=== PATIENT | female | born 1995 | race Two or more races ===

== ENCOUNTER 2019-12-31 09:08 | Inpatient (IN) | payer OTHER ==
[~2019-12-31] VITALS: Ht 177.8 cm; Wt 4.1 kg
[2020-01-09] MEDS ORDERED: PRENATAL PO (15:05)
[2020-01-16] MEDS ORDERED: PRENATAL + DHA1 EAC1 PO (11:27)
== END 2020-01-18 14:54 | disposition home or self-care (01) | DRG 788 ==
LOC: O/R 01-15 08:13 → OB/GYN 01-15 08:13 → EDBD 01-15 12:00 → OB/GYN 01-15 17:11
PROVIDERS: ADMIT Obstetrics & Gynecology; ATTEND Obstetrics & Gynecology
PROC: 4A1HXFZ Monitoring of Products of Conception, Cardiac Rhythm, External Approach (ICD-10-PCS; 2020-01-15)
PROC: 3E033VJ Introduction of Other Hormone into Peripheral Vein, Percutaneous Approach (ICD-10-PCS; 2020-01-15)
PROC: 10D00Z1 Extraction of Products of Conception, Low, Open Approach (ICD-10-PCS; principal; 2020-01-15 08:30)
DX: O34.211 Maternal care for low transverse scar from previous cesarean delivery (principal); Z3A.39 39 weeks gestation of pregnancy; Z37.0 Single live birth; Z20.828 Contact with and (suspected) exposure to other viral communicable diseases

== ENCOUNTER 2020-07-18 00:09 | Emergency (ER) | payer OTHER ==
[~2020-07-18] VITALS: Ht 177.8 cm; Wt 78.5 kg
[~2020-07-18 00:09] MED LIST: PRENATAL + DHA1 EAC1 PO; PRENATAL PO
[2020-07-18] MEDS ORDERED: PEPCID20 MG PO (04:03)
[2020-07-18] MEDS ORDERED: KETO10TA2 PO (04:03)
== END 2020-07-18 04:10 | disposition home or self-care (01) ==
LOC: ER 00:09
DX: N93.8 Other specified abnormal uterine and vaginal bleeding (principal); R10.2 Pelvic and perineal pain; Z33.1 Pregnant state, incidental

== ENCOUNTER → 2020-07-19 | Day surgery (SDC) | payer OTHER ==
[~2020-07-19] VITALS: Ht 177.8 cm; Wt 78.0 kg
[~2020-07-19] MED LIST changes: +KETO10TA2 PO; +PEPCID20 MG PO
--- NOTE | 2020-07-19 03:35 | NUR ---
PACIENTE QUE LLEGA AMBULANDO ALERTA CONCIENTE Y ORIENTADA X3 QUIEN REFIERE QUE EL LE REALIZARON UN ABORTO EN JANELLE CLINICA. Y EL VISITO ER DONDE LUEGO DE CONSULTAR CON NEGRETE GINECOLOGO LE DIERON DE YI CON TODO ESTABLE. REFIERE VENIR HOY PORQUE CONTINUA CON UN SANGR[place]O PROFUSO.
--- NOTE | 2020-07-19 03:55 | NUR ---
SE ASISTE A LA DRA. PRATER EN EXAMEN VAGINAL.
--- NOTE | 2020-07-19 04:05 | NUR ---
SE ORIENTA PTE SOBRE TX MEDICO EL CUAL REFIERE ENTENDER.SE LE EXTRAEN MUESTRAS BAJO MEDIDAS ASEPTICAS,SE CANALIZA Y SE ADMINISTRA MEDICAMENTO TAHMINA ORDEN MEDICA.
== END | disposition home or self-care (01) ==
LOC: ER 03:14 → CIR.AMB 03:15 → ER 03:57 → CIR.AMB 03:57 → SEC-K 03:57 → EDSTATUS 07:00 → SEC-K 13:10
PROVIDERS: ATTEND Obstetrics & Gynecology
DX: O03.4 Incomplete spontaneous abortion without complication (principal); Z20.822 Contact with and (suspected) exposure to COVID-19

== ENCOUNTER 2020-09-17 12:06 | Emergency (ER) | payer OTHER ==
[~2020-09-17] VITALS: Ht 177.8 cm; Wt 74.8 kg
== END 2020-09-17 19:03 | disposition home or self-care (01) ==
LOC: ER 12:06
DX: N23 Unspecified renal colic (principal); R10.2 Pelvic and perineal pain; Z03.818 Encounter for observation for suspected exposure to other biological agents ruled out

== ENCOUNTER 2020-10-13 22:49 | Emergency (ER) | payer OTHER ==
[~2020-10-13] VITALS: Ht 177.8 cm; Wt 74.4 kg
[2020-10-14] MEDS ORDERED: KETO10TA2 PO (06:28)
== END 2020-10-14 07:16 | disposition home or self-care (01) ==
LOC: ER 22:49
DX: N83.291 Other ovarian cyst, right side (principal); R10.2 Pelvic and perineal pain

== ENCOUNTER 2020-11-12 11:24 | Emergency (ER) | payer OTHER ==
[~2020-11-12] VITALS: Ht 177.8 cm; Wt 71.2 kg
[2020-11-12] MEDS ORDERED: ACID REDUCER20 M1 (11:42)
== END 2020-11-12 16:35 | disposition home or self-care (01) ==
LOC: ER 11:24
DX: N93.8 Other specified abnormal uterine and vaginal bleeding (principal)